=== PATIENT | male | born 1995 | race African-American/Black ===

== ENCOUNTER 2024-03-12 20:29 | Emergency (ER) | payer MEDICAID ==
[~2024-03-12] VITALS: Ht 170.2 cm; Wt 80.0 kg
[2024-03-12 20:36] VITALS: O2SAT 99
[2024-03-13 00:08] LABS: BASOPHILS % 0.8 % (0.0-2.0); EOSINOPHILS % 6.5 % (0.0-5.0); HEMATOCRIT. 44.6 % (42.0-52.0); HEMOGLOBIN. 15.4 g/dL (14.0-18.0); LYMPHOCYTES % 40.5 % (20.0-50.0); MEAN CORPUSCULAR HGB CONC 34.6 g/dL (31.0-37.0); MEAN CORPUSCULAR VOLUME 86.6 fL (80.0-94.0); MEAN PLATELET VOLUME 7.4 fl (7.4-10.4); MONOCYTES % 7.1 % (2.0-8.0); NEUTROPHILS % 45.1 % (40.0-76.0); PLATELET 292 x1000/uL (130-400); RED BLOOD CELL COUNT 5.16 mill/uL (4.7-6.1); RED CELL DISTRIBUTION WIDTH 14.2 % (11.6-14.6); WHITE BLOOD COUNT 7.3 x1000/uL (4.5-11.0)
[2024-03-13 00:20] LABS: CARBON DIOXIDE 32 mEq/L (21-32); CHLORIDE 104 mEq/L (98-107); POTASSIUM 3.5 mEq/L (3.5-5.1); SODIUM 141 mEq/L (136-145)
[2024-03-13 00:26] LABS: GLUCOSE 102 mg/dL (70-105); UREA NITROGEN BLOOD 10 mg/dL (9-23)
[2024-03-13] MEDS: CEFTRIAXONE SODIUM 500MG VIAL IM ONE (03:38)
[2024-03-13 04:22] VITALS: BP 140/93; PULSE 77; RESP 19; TEMP 36.89184; O2SAT 98
== END 2024-03-13 03:39 | disposition home or self-care (01) ==
LOC: ER 20:29
DX: A64 Unspecified sexually transmitted disease (principal); R07.89 Other chest pain; J45.909 Unspecified asthma, uncomplicated
CPT/HCPCS: 36415; 71045; 80048; 85025; 93005; 99285